=== PATIENT | female | born 1955 | race Caucasian/White ===

== ENCOUNTER 2019-07-03 15:55 | Emergency (ER) | payer OTHER ==
[~2019-07-03] VITALS: Ht 160 cm; Wt 58.1 kg
--- NOTE | 2019-07-03 16:10 | NUR ---
BIB [facility] FROM HOME,C/O BEING WEAK TODAY,HAND TREMORS X 1 WEEK. PATIENT A/OX4, BREATHING EVEN AND UNLABORED, NO SOB NOTED, NO DSITRESS NOTED. CHANGED INTO GOWN, ATTACHED TO THE HAZARDOUS MATERIALS WASTE TECHNICIAN. NEEDS ATTENDED.
[2019-07-03 16:33] LABS: BASOPHILS # (AUTO) 0.1 /CMM (0.0-0.2); BASOPHILS % (AUTO) 0.7 % (0.0-2.0); EOSINOPHILS % (AUTO) 0.4 % (0.0-6.0); HEMATOCRIT 41 % (33-45); LYMPHOCYTES # (AUTO) 1.4 /CMM (0.8-4.8); LYMPHOCYTES % (AUTO) 16.2 % (20.0-44.0); MEAN CORPUSCULAR HGB CONC 34 g/dl (31.0-36.0); MEAN CORPUSCULAR VOLUME 87 fL (82-100); MONOCYTES # (AUTO) 0.9 /CMM (0.1-1.30); MONOCYTES % (AUTO) 9.8 % (2.0-12.0); NEUTROPHILS # (AUTO) 6.5 /CMM (1.8-8.9); NEUTROPHILS % (AUTO) 72.9 % (43.0-81.0); PLATELET COUNT (AUTO) 237 /CMM (150-450); RED BLOOD CELL COUNT(AUTO) 4.71 MIL/uL (4.0-5.2); WHITE BLOOD COUNT (AUTO) 8.8 K/uL (4.3-11.0)
[2019-07-03 16:40] LABS: CALCIUM, SERUM 9.3 mg/dL (8.5-10.1); CREATININE 1.4 mg/dL (0.6-1.3); POTASSIUM 4.1 mmol/L (3.5-5.1)
[2019-07-03 16:46] LABS: ALBUMIN 3.8 g/dL (3.4-5.0); BILIRUBIN,DIRECT 0.1 mg/dL (0.0-0.2); BILIRUBIN,TOTAL 0.4 mg/dL (0.2-1.0); TOTAL PROTEIN, SERUM 7.7 g/dL (6.4-8.2)
[2019-07-03 17:56] VITALS: BP 137/80
--- NOTE | 2019-07-03 17:56 | NUR ---
Patient ambulatory with a steady gait. Patient discharged to home in stable condition. Written and verbal after care instructions given. Patient verbalizes understanding of instruction.
== END 2019-07-03 18:17 | disposition home or self-care (01) ==
LOC: ER 16:01
DX: G62.9 Polyneuropathy, unspecified (principal); Z98.890 Other specified postprocedural states; Z60.2 Problems related to living alone
CPT/HCPCS: 36415; 70450-TC; 72125-TC; 80048-TC; 80076-TC; 85025-TC